=== PATIENT | female | born 1975 | race Caucasian/White ===

== ENCOUNTER 2023-07-11 08:20 | Outpatient (CLI) | payer BC, SELFPAY | END 2023-07-11 08:21 | disposition home or self-care (01) | PROVIDERS: PCP Family Medicine; Visit Provider Family Medicine | DX: Z00.00 Encounter for general adult medical examination without abnormal findings (principal); Z13.6 Encounter for screening for cardiovascular disorders; Z13.0 Encounter for screening for diseases of the blood and blood-forming organs and certain disorders involving the immune mechanism; Z13.1 Encounter for screening for diabetes mellitus | CPT/HCPCS: 80048; 80061 ==

== ENCOUNTER 2023-11-29 15:06 | Outpatient (CLI) | payer BC, SELFPAY ==
--- OUTSIDE RECORDS SUMMARY | 2023-11-29 15:14 | XMS_ITS ---
Author Name Unknown Organization [facility] Address [address] [place] [address] Care Team Providers Care Conveyor Belt Repairer Name Role Phone Unavailable Unavailable Unavailable Surgery Details Not on file Complications Check Surgery Details section. Procedure Estimated Blood Loss Check Surgery Details section. Procedure Findings Check Surgery Details section. Procedure Specimens Taken Check Surgery Details section.
--- OUTSIDE RECORDS SUMMARY | 2023-11-29 15:14 | XMS_ITS | Encounter Summary ---
Author Name Unknown Organization [facility] Address [address] [place] [address] Care Team Providers Care Principal Statistical Programmer Name Role Phone Elsewhere, Pcp Primary Care Provider Unavailabl e Encounter Details Date Type Department Care Team (Late st Contact Info) Description 06/01/2023 Orders Only Pharmacy Prior Auth JACK [phone] Apryl Oro Social History Tobacco Use Types Packs/Day Years Used Date Smoking Tobacco: Some Days Cigarettes Comments:Pt states she smoke s occasionally, maybe 4 cigarettes a month. Alcohol Use Standard Drinks/Week Comments Yes 0 (1 standard drink = 0.6 oz pur e alcohol) Nutrition Answer Date Recorded Nutrition: EVOO Fat Source Unknown 12/26 Nutrition: Servings of Fruits/Vegetables per Day Not on file 12/26/2020 Dental Answer Date Recorded Dental: Regular Dentist Unknown 12/27/19 21 Sex and Gender Information Value Date Recorded Sex Assigned at Not on file Gender Identity Not on file Sexual Orientation Not on file documented as of this encounter Plan of Treatment Not on file documented as of this encounter Visit Diagnoses Not on filedocumented in this encounter Care Teams Principal Statistical Programmer Relationship Specialty Start Date End Date Elsewhere, Pcp PCP - General Internal Medicine 05/18/22 documented as of this encounter
--- OUTSIDE RECORDS SUMMARY | 2023-11-29 15:14 | XMS_ITS | Referral Summary ---
Author Name Unknown Organization [facility] Address [address] [place] [address] Care Team Providers Care Bean Snipper Name Role Phone Elsewhere, Pcp Primary Care Provider Unavailabl e Source Comments Patient records contain information from all sites at [facility]. For routine questions regarding patient records, call [phone] during business hours, M-F 8:00 AM - 5:00 PM Central Time. Record requests for emergency care only can be directed to [phone] at any time.[facility] Allergies Active Allergy Reactions Criticality Noted Date Comments Codeine Other (see comments) 05/18/2022 Nausea Medications No known medications Active Problems No known active problems Social History Tobacco Use Types Packs/Day Years Used Date Smoking Tobacco: Some Days Cigarettes Tobacco Cessation:Ready to Q uit: Not Asked; Counseling Given: Not Answered Comments:Pt states she smokes occasionally, maybe 4 cigarettes a month. Alcohol Use Standard Drinks/Week Comments Yes 0 (1 standard drink = 0.6 oz pur e alcohol) Nutrition Answer Date Recorded Nutrition: EVOO Fat Source Unknown 12/26 Nutrition: Servings of Fruits/Vegetables per Day Not on file 12/26/2020 Dental Answer Date Recorded Dental: Regular Dentist Unknown 12/27/19 Sex and Gender Information Value Date Recorded Sex Assigned at Not on file Gender Identity Not on file Sexual Orientation Not on file Last Filed Vital Signs Vital Sign Reading Time Taken Comments Blood Pressure 135/93 05/31/2023 9:46 PM CDT Pulse 66 05/31/2023 9:46 PM CDT Temperature 36.4 ??C (97.5 ??F) 05/31/2023 9:46 PM CD T Respiratory Rate 16 05/31/2023 9:46 PM CDT Oxygen Saturation 98% 05/31/2023 9:46 PM CDT Inhaled Oxygen Concentration - - Weight 83.6 kg (184 lb 4.9 oz) 05/31/2023 9:01 P M CDT Height 177.8 cm (5' 10) 05/31/2023 9:01 PM CDT Body Mass Index 26.44 05/31/2023 9:01 PM CDT Plan of Treatment Not on file Care Teams Bean Snipper Relationship Specialty Start Date End Date Elsewhere, Pcp PCP - General Internal Medicine 05/18/22
--- OUTSIDE RECORDS SUMMARY | 2023-11-29 15:14 | XMS_ITS | Encounter Summary ---
Author Name Unknown Organization [facility] Address [address] [place] [address] Care Team Providers Care Oil Well Directional Surveyor Name Role Phone Elsewhere, Pcp Primary Care Provider Unavailabl e Reason for Visit * Reason Onset Date Comments Rx Denial 06/02/2023 PHENAZOPYRIDINE HCL 100 MG TABLET Encounter Details Date Type Department Care Team (Latest Contact Info) Description 06/02/2023 Clinical Communication Pharmacy Prior Auth [phone] Michael Edwards M.D. [address] [place] [phone] Rx Denial (PHENAZOPYRIDINE HCL 100 MG TABLET) Social History Tobacco Use Types Packs/Day Years [...] on file documented as of this encounter Miscellaneous Notes * Telephone Encounter - Peewee Justin - 06/02/2023 1:26 PM CDT Images from the original note were not included. The patient's health insurer has denied prior authorization for [PHENAZOPYRIDINE HCL 100 MG TABLET ]. A screen shot of the denial reason is at the bottom of this communication message. To view the complete denial letter, scroll down to the green Guidance section below and click on the appropriate medication in the Current Prescription Prior Authorizations display. As the prescriber, your options are: Appeal the decision to the insurer directly (see denial letter for how to appeal). Write a new Rx for an alternative medication therapy. Release the Rx to the pharmacy so the patient has the option to pay out of pocket. To Release Rx: Open this encounter, go to [employer], and click on the medication. If the blue ???Release Rx?? button appears as an option, click to release the prescription. If the blue Release Rx button is not visible, the Rx has already been released to the pharmacy. If you have questions, please reply to Keyla HOLDER. Thank you, The OPPA Team documented in this encounter Plan of Treatment Not on file documented as of this encounter Visit Diagnoses Not on filedocumented in this encounter Care Teams Oil Well Directional Surveyor Relationship Specialty Start Date End Date Elsewhere, Pcp PCP - General Internal Medicine 05/18/22 documented as of this encounter
--- OUTSIDE RECORDS SUMMARY | 2023-11-29 15:14 | XMS_ITS | Clinical Summary ---
Author Name Unknown Organization [facility] Address [address] [place] [address] Care Team Providers Care Therapist Rrt Name Role Phone Elsewhere, Pcp Primary Care Provider Unavailabl e Source Comments Patient records contain information from all sites at [facility]. For routine questions regarding patient records, call [phone] during business hours, M-F 8:00 AM - 5:00 PM Central Time. Record requests for emergency care only can be directed to [phone] at any time.[facility] Allergies Active Allergy Reactions Criticality Noted [...] 05/31/2023 9:01 PM CDT Plan of Treatment Health Maintenance Due Date Last Done Comments CT Colonography 1975 Cervical Cancer Screening 1975 Cologuard 1975 Colonoscopy 1975 Colorectal Cancer Screening 1975 FIT 1975 Fasting Glucose for Diabetes Screening 1975 HIV Screening 1975 Hepatitis B Vaccines (1 of 3 - 3-dose series) 1975 Hepatitis C Screening 1975 Lipid (Cholesterol) Screening 1975 Mammogram 1975 Tobacco Cessation counseling 1975 Pneumococcal vaccine (0-64 y ears) (1 of 2 - PCV) 1981 COVID-19 Vaccine (3 - 2022- season) 2023, 02/13/2021 Influenza Vaccine (#1) 2023 08/21/2013 Depression Screening (Annual PHQ-2) 10/24/2023 DTaP,Tdap,and Td Vaccines (3 - Td or Tdap) 07/11/2033 07/11/2023, 02/09/2011 Care Teams Therapist Rrt Relationship Specialty Start Date End Date Elsewhere, Pcp PCP - General Internal Medicine 05/18/22
--- OUTSIDE RECORDS SUMMARY | 2023-11-29 15:14 | XMS_ITS | Encounter Summary ---
Author Name Unknown Organization [facility] Address [address] [place] [address] Care Team Providers Care Wall Insulation Sprayer Name Role Phone Elsewhere, Pcp Primary Care Provider Unavailabl e Reason for Referral * Medication Prior Authorization - Denied Specialty Diagnoses / Procedures Referred By Tenisha howell Referred To Contact Michael Edwards M.D. [address] [place] [phone] Referral ID Status Reason Start Date Expiration Date Visits Re quested Visits Authorized [id number] Denied 1 1 Reason for Visit * Reason Comments Urinary Problem Pt presents with pari quent and painful urination that began this evening. Pt states she called the triage line and they recommended she be seen for possible UTI. Encounter Details Date Type Department Care Team (Late st Contact Info) Description 05/31/2023 8:57 PM CDT - 05/31/2023 9:54 PM CDT Emergency [facility] [address] [place] [phone] Michael Edawrds M.D. [address] [place] [phone] Dysuria (Primary Dx); Urinary Tract Infection Site Not Specified; Cystitis Acute Discharge Disposition: Home or Self Care Social History Tobacco Use Types Packs/Day Years [...] on file documented as of this encounter Last Filed Vital Signs Vital Sign Reading [...] Mass Index 26.44 05/31/2023 9:01 PM CDT documented in this encounter Medications at Time of Discharge Medication Sig Dispensed Refills Start Date End Date nitrofurantoin monohydrate (MACROBID) 100 mg capsule Take 1 capsule (100 mg total) by mouth 2 (two) times a day for 3 days. 6 capsule 0 05/31/2023 06/03/2023 phenazopyridine (PYRIDIUM) 100 mg tablet Take 1 tablet (100 mg total) by mouth 3 (three) times a day as needed for painful urination for up to 10 days. 10 tablet 0 05/31/2023 06/10/2023 documented as of this encounter ED Notes * Michael Edwards M.D. - 05/31/2023 9:54 PM CDT SUBJECTIVE CHIEF COMPLAINT/REASON FOR VISIT Urinary Problem (Pt presents with frequent and painful urination that began this evening. Pt statesshe called the triage line and they recommended she be seen for possible UTI. ) HISTORY OF PRESENT ILLNESS This is a 48-year-old female that presents with dysuria that started this afternoon, has malodorousurine, no flank pain. No fever. REVIEW OF SYSTEMS Constitutional: Negative for diaphoresis, fatigue and fever. HENT: Negative for congestion. Respiratory: Negative for chest tightness and shortness of breath. Cardiovascular: Negative for chest pain. Gastrointestinal: Negative for abdominal pain. Genitourinary: Positive for dysuria. Negative for flank pain and hematuria. OBJECTIVE Initial Vitals Temperature 05/31/232145 36.4 ??C Pulse Rate 05/31/232104 76 Heart Rate -- Resp Rate 05/31/232145 16 Blood Pressure 05/31/232104 (!) 135/101 SpO2 05/31/232104 97 % Pain Score 05/31/232106 5 - Moderate pain PHYSICAL EXAMINATION Constitutional: Nursing note and vitals reviewed. No distress. HENT: Nose: No nasal discharge. Neck: No tracheal deviation present. Pulmonary/Chest: Effort normal. No tachypnea. No respiratory distress. She exhibits no retraction. Abdominal: Soft. exhibits no distension. Neurological: Alert and oriented to person, place, and time. Skin: Skin is warm and dry. Psychiatric: She has a normal mood and affect. Behavior is normal. Judgment and thought content normal. ASSESSMENT/PLAN No CVA tenderness, UA consistent urinary tract infection, was started on Macrobid, Pyridium, prescription sent. No concern for pyelonephritis clinically On last evaluation, patient stable for discharge. ED return precautions given, both specific for condition and if they feel any concern for a change or worsening of their condition. Advised to follow up with primary care physician. Final Diagnoses: as of 05/31/232256 Dysuria Urinary Tract Infection Site Not Specified Cystitis Acute Michael Edwards M.D. 05/31/23 0783 documented in this encounter Plan of Treatment Not on file documented as of this encounter Procedures Procedure Name Priority Date/Time Associated Diagnosis Comments URINALYSIS WITH MICROSCOPIC STAT 05/31/2023 9:07 PM CDT documented in this encounter Results * (ABNORMAL) Urinalysis with Microscopic: Urine, Midstream (05/31/2023 9:07 PM CDT) Source Urine, Urine, Midstream 05/31/2023 9:10 PM CDT NPRG Clarity Clear Clear 05/31/2023 9:17 PM CDT NPRG Color Yellow 05/31/2023 9:17 PM CDT NPRG Comment: ----REFERENCE VALUE---- Colorless Yellow Bess Blood Large(A) Negative 05/31/2023 9:17 PM CDT NPRG Nitrite Negative Negative 05/31/2023 9:17 PM CDT NPRG Leukocyte Esterase Small(A) Negative 05/31/2023 9:17 PM CDT NPRG Protein 30(A) mg/dL 05/31/2023 9:17 PM CDT NPRG Comment: ----REFERENCE VALUE---- Negative Trace Glucose Negative Negative mg/dL 05/31/2023 9:17 PM CDT NPRG Ketones, QI(U) 15(A) Negative mg/dL 05/31/2023 9:17 PM CDT NPRG Bilirubin Negative Negative 05/31/2023 9:17 PM CDT NPRG pH 7.0 5.0 - 8.0 05/31/2023 9:17 PM CDT NPRG Specific Leonard 1.020 1.001 - 1.035 05/31/2023 9:17 PM CDT NPRG Urobilinogen 0.2 0.2 - 1.0 mg/dL 05/31/2023 9:17 PM CDT NPRG White Blood Cells 11-20(A) /hpf 05/31/2023 9:27 PM CDT NPRG Comment: ----REFERENCE VALUE---- Males: 0-3 Females: 0-10 Unknown: 0-10 Red Blood Cells 31-40(A) 0 - 2 /hpf 9:27 PM CDT NPRG Dysmorphic Red Blood Cells <=25 <=25 % 05/31/2023 9:27 PM CDT NPRG Crystals Amorphous(A) None Seen /lpf 05/31/2023 9:27 PM CDT NPRG Squamous Cells 4-10 /hpf 05/31/2023 9:27 PM CDT NPRG Bacteria Present(A) None Seen 05/31/2023 9:27 PM CDT NPRG Urine (Urine, Midstream) 05/31/2023 9:07 PM CDT 05/31/2023 9:10 PM CDT Michael Edwards M.D. LAB URINE ORDERABLES [facility] [address] [place] [address], [place] NPRG [facility] [address] [place] [address] documented in this encounter Visit Diagnoses Diagnosis Dysuria- Primary Urinary Tract Infection Site Not Specified Cystitis Acute documented in this encounter Administered Medications Inactive Administered Medications - up to 3 most recent administrations Medication Order MAR Action Action Date Dose Rate Site nitrofurantoin monohydrate capsule 100 mg (MACROBID) 100 mg, oral, Once, On Tue05/31/23 at 2132, For 1 dose, Drug Monitoring Program: Pharmacist to adjust medication dosing based on indication and drug clearance factors., Indications: Lower UTI, Non-Catheter Given 05/31/2023 9:45 PM CDT 100 mg phenazopyridine tablet 200 mg (PYRIDIUM) 200 mg, oral, Once, On Tue05/31/23 at 2132, For 1 dose, Drug Monitoring Program: Pharmacist to adjust medication dosing based on indication and drug clearance factors. Given 05/31/2023 9:45 PM CDT 200 mg documented in this encounter Active and Recently Administered Medications Times are shown in CDT. Scheduled Medication Order 05/29/2023 05/30/2023 05/31/2023 nitrofurantoin monohydrate capsule 100 mg (MACROBID) (COMPLETED) 100 mg, oral, Once, On Tue05/31/23 at 2132, For 1 dose, Drug Monitoring Program: Pharmacist to adjust medication dosing based on indication and drug clearance factors., Indications: Lower UTI, Non-Catheter 2144 (Given - Provid er: Monique Salomon R.N.) phenazopyridine tablet 200 mg (PYRIDIUM) (COMPLETED) 200 mg, oral, Once, On Tue05/31/23 at 2132, For 1 dose, Drug Monitoring Program: Pharmacist to adjust medication dosing based on indication and drug clearance factors. 2144 (Given - Provid er: Monique Salomon R.N.) documented in this encounter Care Teams Wall Insulation Sprayer Relationship Specialty Start Date End Date Elsewhere, Pcp PCP - General Internal Medicine 05/18/22 documented as of this encounter
--- OUTSIDE RECORDS SUMMARY | 2023-11-29 15:14 | XMS_ITS | Encounter Summary ---
Author Name Unknown Organization [facility] Address [address] [place] [address] Care Team Providers Care Small Engine Technician Name Role Phone Elsewhere, Pcp Primary Care Provider Unavailabl e Reason for Visit * Reason Onset Date Comments Bladder Infection 05/31/2023 Encounter Details Date Type Department Care Team ([facility] st Contact Info) Description 05/31/2023 Nurse Triage Department of Family Medicine in [place], [place] [address] [place] [phone] Rach Manning R.N. [address] [place] [phone] Bladder Infection Social History Tobacco Use Types Packs/Day Years [...] encounter Miscellaneous Notes * Telephone Encounter - Rach Manning R.N. - 05/31/2023 8:36 PM CDT Chief Complaint / Reason for Call Patient is a 48 y.o. female calling regarding Bladder Infection. Assessment Concern: Caller suspects possible UTI starting tonight, states she normally gets her care non-[facility].Has painful urination and frequency. The recommended disposition is See a health care provider within 24 hours. Reason for Disposition All other patients with painful urination (Exception: [1] EITHER frequency or urgency AND [2] has on-call doctor.) Protocols used: Urination Pain - Wjvzoa-RSKMJ-AO DRINK EXTRA FLUIDS: * Drink extra fluids. * Drink 8 to 10 cups (1,800 to 2,400 ml) of liquids a day. * Reason: This will water-down your urine and make it less painful to pass. It will also help washout any germs that may be in your bladder. PAIN MEDICINES: * For pain relief, you can take either acetaminophen, ibuprofen, or naproxen. * They are vofv-pde-gaohonc (OTC) pain drugs. You can buy them at the drugstore. * CALL BACK IF: * Fever or back pain occurs * You become worse documented in this encounter Plan of Treatment Not on file documented as of this encounter Visit Diagnoses Not on filedocumented in this encounter Care Teams Small Engine Technician Relationship Specialty Start Date End Date Elsewhere, Pcp PCP - General Internal Medicine 05/18/22 documented as of this encounter
--- NOTE | 2023-11-29 15:20 | CRLHL7_ITS ---
For Patients: As a result of the Century Cures Act, medical imaging exams and procedure reports are released immediately into your electronic medical record. You may view this report before your referring provider. If you have questions, please contact your health care provider. BILATERAL SCREENING MAMMOGRAM WITH COMPUTER-AIDED DETECTION AND TOMOSYNTHESIS TECHNIQUE: CC and MLO views were obtained. These mammographic images have been obtained using full-field digital technique. These mammographic images were interpreted with the benefit of computer-aided detection. Breast Tomosynthesis was used in this interpretation. COMPARISON FILM: 08/29/20, 07/26/19, 08/25/18. FINDINGS: There are scattered areas of fibroglandular density IMPRESSION: There is no radiographic evidence for malignancy. ASSESSMENT: BI-RADS Category 1: Negative RECOMMENDATION: Routine screening mammogram in 1 year. A lay language report of this examination will be provided to the patient. Abisai Davis M.D. Diagnostic Radiologist [email or web address] Transcribed: 5:14 p.mHoang molina/Dictated by: Abisai Davis MD @ 12/01/2023 11:59:00 AM (Electronically Signed)
== END 2023-11-29 15:07 | disposition home or self-care (01) ==
LOC: MAMMO 15:07
PROVIDERS: PCP Family Medicine; Visit Provider Family Medicine
DX: Z12.31 Encounter for screening mammogram for malignant neoplasm of breast (principal); Z80.3 Family history of malignant neoplasm of breast
CPT/HCPCS: 77063; 77067

== ENCOUNTER 2025-05-29 14:05 | Outpatient (CLI) | payer OTHER, SELFPAY | END 2025-05-29 14:06 | disposition home or self-care (01) | LOC: NFLDREF 06-03 14:49 | PROVIDERS: PCP Family Medicine; Referring Provider Family Medicine; Visit Provider Physician Assistant Medical | DX: R14.0 Abdominal distension (gaseous) (principal); N95.1 Menopausal and female climacteric states; R53.83 Other fatigue; G43.909 Migraine, unspecified, not intractable, without status migrainosus; Z11.3 Encounter for screening for infections with a predominantly sexual mode of transmission; Z11.4 Encounter for screening for human immunodeficiency virus [HIV]; Z11.59 Encounter for screening for other viral diseases | CPT/HCPCS: 80053; 80061; 82306; 82607; 82728; 82784; 83001; 84443; 86231; 86258; 86364; 86703; 86803 ==

== ENCOUNTER 2025-06-07 13:29 | Outpatient (CLI) | payer OTHER, SELFPAY ==
--- NOTE | 2025-06-07 13:40 | CRLHL7_ITS ---
For Patients: As a result of the Century Cures Act, medical imaging exams and procedure reports are released immediately into your electronic medical record. You may view this report before your referring provider. If you have questions, please contact your health care provider. INDICATION: BILATERAL SCREENING MAMMOGRAM, ASYMPTOMATIC 50 Y/O FEMALE COMPARISON: 11/29/2023, 08/29/2020, 07/26/2019 TECHNIQUE: Digital mammogram in CC and MLO projections including computer-aided detection (CAD) and tomosynthesis. BREAST COMPOSITION: There are scattered areas of fibroglandular density. FINDINGS: No suspicious findings. ASSESSMENT: BI-RADS 1 Negative RECOMMENDATION: Annual screening mammogram. A lay language report of this examination will be provided to the patient. Dictated by: Radha Morales MD @ 06/10/2025 07:28:25 (Electronically Signed)
== END 2025-06-07 13:30 | disposition home or self-care (01) ==
LOC: MAMMO 13:30
PROVIDERS: PCP Family Medicine; Visit Provider Physician Assistant Medical
DX: Z12.31 Encounter for screening mammogram for malignant neoplasm of breast (principal)
CPT/HCPCS: 77063; 77067

== ENCOUNTER 2025-06-20 06:41 | Outpatient (CLI) | payer OTHER, SELFPAY ==
--- NOTE | 2025-06-20 08:46 | P.ANES_ITS ---
Anesthesia Charges Start Date/Time Anesthesia Start Date: 06/20/25 Anesthesia Start Time: 08:00 Stop Date/Time Anesthesia Stop Date: 06/20/25 Anesthesia Stop Time: 08:43 Coding CPT Codes CPT Codes: ANES UPR LWR GI NDSC PX - 34221 ([id number]) P2 - PATIENT W/MILD SYST DISEASE, QK - HUMAN RELATIONS MANAGER 2-4 CNCRNT ANES PROC, QX - PACKING MACHINE PILOT CAN ROUTER SVC W/ MD MED DIRECTION
--- NOTE | 2025-06-20 08:46 | W.ANESCHARGE ---
Anesthesia Charges Start Date/Time Anesthesia Start Date: 06/20/25 Anesthesia Start Time: 08:00 Stop Date/Time Anesthesia Stop Date: 06/20/25 Anesthesia Stop Time: 08:43 Coding CPT Codes CPT Codes: ANES UPR LWR GI NDSC PX - 95942 ([id number]) P2 - PATIENT W/MILD SYST DISEASE, QK - DIVERSIFIED CROPS I FARMWORKER 2-4 CNCRNT ANES PROC, QX - INSPECTOR QUALITY ASSURANCE SVC W/ MD MED DIRECTION
--- NOTE | 2025-06-20 11:31 | P.ANES_ITS ---
Anesthesia Charges Start Date/Time Anesthesia Start Date: 06/20/25 Anesthesia Start Time: 08:00 Stop Date/Time Anesthesia Stop Date: 06/20/25 Anesthesia Stop Time: 08:43 Coding CPT Codes CPT Codes: ANES UPR LWR GI NDSC PX - 33467 ([id number]) P2 - PATIENT W/MILD SYST DISEASE, QK - OPERATOR CAVITY PUMP 2-4 CNCRNT ANES PROC, QX - AUTOMOBILE TAILLIGHT ASSEMBLER SVC W/ MD MED DIRECTION
--- NOTE | 2025-06-20 11:31 | W.ANESCHARGE ---
Anesthesia Charges Start Date/Time Anesthesia Start Date: 06/20/25 Anesthesia Start Time: 08:00 Stop Date/Time Anesthesia Stop Date: 06/20/25 Anesthesia Stop Time: 08:43 Coding CPT Codes CPT Codes: ANES UPR LWR GI NDSC PX - 28835 ([id number]) P2 - PATIENT W/MILD SYST DISEASE, QK - HUMAN RESOURCES PARTNER 2-4 CNCRNT ANES PROC, QX - SENIOR EDUCATION SPECIALIST SVC W/ MD MED DIRECTION
== END 2025-06-20 06:42 | disposition home or self-care (01) ==
LOC: OP CLINIC 06:41
PROVIDERS: PCP Physician Assistant Medical; Visit Provider Surgery
DX: Z12.11 Encounter for screening for malignant neoplasm of colon (principal); R14.0 Abdominal distension (gaseous); D12.0 Benign neoplasm of cecum; D12.2 Benign neoplasm of ascending colon; D13.1 Benign neoplasm of stomach; K22.89 Other specified disease of esophagus
CPT/HCPCS: 00813; 43239; 45385; 88305; J2405; J2704; J3490